=== PATIENT | male | born 1985 | race Caucasian/White ===

== ENCOUNTER 2023-11-03 06:26 | Emergency (ER) | payer OTHER, SELFPAY ==
[2023-11-03 06:30] VITALS: BMI 30.2
[2023-11-03 06:34] VITALS: BP 130/89
--- NOTE | 2023-11-03 06:48 | ED.GENMED ---
History of Present Illness
General
Chief Complaint: Skin Surface Trauma
Source: patient
Exam Limitations: none
Time Seen by Provider: 11/03/23 06:38
Nursing documentation reviewed up to this point in time: agreed with
History of Present Illness
History of Present Illness:
38-year-old male with past medical history of alcohol use presents to the emergency room for evaluation of a foot laceration. Patient reports that he was cleaning his room this morning and broke his fish tank. He says that he stepped on a piece of
glass from the tank and sustained a laceration to the foot. Unsure of his last tetanus. No other injuries.
Past History
Past History
ED Past Medical History: Other (ADHD)
ED Past Surgical History: Orthopedic
Social History
Tobacco: Smoker
Alcohol: Occasional
Personal: Single
Living: with family
Employment: Not employed
Review of Systems
Review of Systems
All Other Systems: ROS reviewed and negative except as documented in HPI and ROS
Skin: Reports other (Lacerations)
Phy Exam
Physical Exam
Physical Exam:
General: Well appearing and non-toxic; mildly intoxicated
HEENT: protecting airway
Neck: appears supple
CV: No evidence of cyanosis
Resp: No accessory muscle use
Abd: Non-distended
Extremities: No deformities
Neuro: Alert
Psych: Normal affect
Skin: Patient has approximately 5 cm linear laceration anterior to the medial malleolus as well as a approximately 2 cm linear laceration on the plantar surface of the foot near the instep; good strong DP pulse noted on the right foot, no pulsatile
bleeding; left foot appears normal with no lacerations or breaks in the skin
Scores
Heart Failure Risk
Heart Failure Risk Score: Not Applicable
Heart Score for Chest Pain Patients
STEMI patient?: Not applicable
Withdrawal Assessment of Alcohol
Withdrawal Assessment Completed?: Not applicable
Course
Orders/Labs/Results
Orders:
Orders
11/03/23 06:46
CR Foot - Right Min 3 Views Urgent
Comment:
Reason For Exam: laceration to foot from glass,eval for signs of FB
11/03/23 06:47
Tetanus/Diphth/Acelpertussis [Adacel] 0.5 ml IM .ONCE ONE
Vital Signs
Initial and Last Documented VS:
Initial Vital Signs
Temp Pulse Resp BP Pulse Ox
36.8 C 99 18 130/89 98
11/03/23 06:34 11/03/23 06:34 11/03/23 06:34 11/03/23 06:34 11/03/23 06:34
Last Documented Vital Signs
Temp Pulse Resp BP Pulse Ox
36.8 C 99 18 130/89 98
11/03/23 06:34 11/03/23 06:34 11/03/23 06:34 11/03/23 06:34 11/03/23 06:34
Procedures
Laceration Closure
Right Ankle:
Status of Wound: clean
Size of Wound in cm: 5
Description of Wound Edges: sharp
Preparation: cleaned with saline and cleaned with Betadine
Anesthesia: 1% Lidocaine with epi
Revision/Debridement: routine- no revision
Wound exploration: explored to base- no FB
Type of Closure: single layer closure
Skin Closure Material: 4-0 vicryl
Number of sutures: 7
Right Foot:
Status of Wound: clean
Size of Wound in cm: 2
Description of Wound Edges: ragged
Preparation: cleaned with saline and cleaned with Betadine
Anesthesia: 1% Lidocaine with epi
Revision/Debridement: minor revision
Wound exploration: explored to base- no FB
Type of Closure: single layer closure
Skin Closure Material: 4-0 vicryl
Number of sutures: 3
MDM/Problems Addressed
Differential Diagnosis Includes:
Lacerations
MDM/Problems Addressed:
38-year-old male presents with lacerations to left foot from glass. He has 2 lacerations on the right foot, no other injuries noted. Unsure of his last tetanus�will update tetanus here. Will start with an x-ray to evaluate for any signs of
foreign body�if nothing noted on x-ray will need to explore wounds during cleaning/repair to rule out any signs of foreign body.
X-ray reviewed�no foreign body noted. Wounds explored in bloodless field using ankle tourniquet�explored to base and no foreign body noted. Lacerations repaired as documented in procedure note. He is mildly intoxicated�mother to come pick him up.
Discharge.
*Radiology
Radiology exam reviewed: preliminary read by ED provider and radiology read reviewed
*Pulse Oximetry
Patient hypoxic: no
*Critical Care Note
Total Time (30-74mins, 75-104mins- exclusive of procedures): Not Applicable
Data Reviewed
Source: patient
ED Attending Note
-
Portions of this chart may have been created with voice recognition software.� Occasional wrong word or��sound alike� substitutions may have occurred due to the inherent limitations of voice recognition software.
Discharge Plan
Departure
Patient with high blood pressure during this ER visit?: No
Discharge Problem:
Foot laceration
Instructions: Laceration Repair With Stitches (DC)
Prescriptions:
No Action
Adderall
1 tab PO DAILY
Activity Restrictions/Additional Instructions:
You should monitor the area of your lacerations for any signs of infection. If you notice redness, swelling, increasing pain, drainage, fever or any other concerning symptoms please return immediately to have the area reassessed. Your stitches are
absorbable�they do not need to be removed.
Thank you for visiting the Emergency Department at [facility].
1. Please schedule a follow up appointment as directed. Call first thing tomorrow morning to make an appointment.
2. If indicated, please take your medications as instructed and indicated on discharge paperwork.
3. If any of your symptoms do not improve, or persist, or become more severe within 6-12 hours, please return to the emergency department for further care.
4. Please return to the emergency department if you develop a headache, neck pain/stiffness, fever greater than 100.4F, chest pain, shortness of breath, persistent nausea, vomiting, slurred speech, difficulty walking, numbness/tingling, weakness,
signs of infection or any other symptoms that are worrisome to you.
Please call [phone] if you have any questions.
Interventions
Interventions:
*Risk Screen - Suicide Last Done: 11/03/23 06:30
*General Assessment Last Done: 11/03/23 06:30
*Neglect/Abuse Screening Last Done: 11/03/23 06:30
ED- Fall Risk Assessment Last Done: 11/03/23 06:36
*ED COVID-19 Vaccine History Last Done: 11/03/23 06:30
ED-Skin Assessment Last Done: 11/03/23 06:36
Discharge Date and Time
Print Language: VIETNAMESE
[2023-11-03 08:37] VITALS: BP 123/86
--- NOTE | 2023-11-03 08:38 | EDRN ---
the pt is going to be discharged, per Dr. Muller the pt is not to drive home due to being 'intoxicated' per the provider, the provider called the pts mom and the pts mom is going to pick the pt up and take him home, this RN and Dr. Muller provided the
pt with discharge instructions and the pt verbally stated that he understood, the pt is resting in stretcher in the lowest position, side rails up x2, call farooq within reach, HOB elevated, no s/s of distress, will continue to monitor the pt closely
--- NOTE | 2023-11-03 09:00 | EDRN ---
the pts mother Letha arrived and entered the pts room and about 10 minutes later approached this RN at the nurses station and stated, 'I mentioned to him that he shouldn't be drinking and how it isn't right and he just started cursing and getting
angry and he just walked out, i am not sure which way he went but that was a few minutes ago', this RN notified Dr. Muller, the charge nurse, and security, this RN and Renata RN looked throughout the entire department with no sign of the pt, this RN
asked the pts mother what kind of car the patient drove and she stated that he drove a silver honda, this RN looked in the parking lot with security and Renata RN with no sign of the pt, this RN notified Dr. Muller and per the provider [place]
police were called and notified, the pts mother stated that she would start her ride home to see if she sees the pt on her way and to see if the pt made it home okay, this RN handed the pts mother the pts discharge instructions, the pts mother
stated before leaving, 'I didn't know that he was going to get this upset, i know that he was diagnosed with schitzophrenia but he doesn't want me to know anything else, i know that he got drunk last night and started cursing and throwing things and
that's how he broke his fish tank and hurt his foot, he left and i didn't know where he went', dispatch notified
--- NOTE | 2023-11-03 09:00 | EDRN ---
the pts mother Letha arrived and entered the pts room and about 10 minutes later approached this RN at the nurses station and stated, 'I mentioned to him that he shouldn't be drinking and how it isn't right and he just started cursing and getting
angry and he just walked out, i am not sure which way he went but that was a few minutes ago', this RN notified Dr. Muller due to the provider stating that the pt was intoxicated, the charge nurse was notified, and security was notified, this RN and
Renata RN looked throughout the entire emergency department with no sign of the pt, torres outside of the emergency department leading to the rest of the hospital were checked as well as the waiting room and the ambulance bay, this RN asked entered
the pts room and asked the pts mother what kind of car the patient drove so that staff would look to see if the car was still possibly at [facility], and she stated that he drove a silver honda, this RN looked in the parking lot with security and Renata
RN with no sign of the pt, this RN notified Dr. Muller and per the provider [place] police were to be called and notified, the pts mother stated that she would start her ride home to see if she sees the pt on her way and to see if the pt made it
home okay, this RN handed the pts mother the pts discharge instructions, the pts mother stated before leaving, 'I didn't know that he was going to get this upset and walk out on me before i could safely take him home, i know that he was diagnosed
with schizophrenia but he doesn't want me to know anything else he is very secretive, i know that he got drunk last night and started cursing and throwing things and that's how he broke his fish tank and hurt his foot, he left and i didn't know
where he went', dispatch notified about the pts condition and what happened in [place] emergency department, this RN also tried to call the pts cell phone multiple times with no answer
--- NOTE | 2023-11-03 09:00 | EDRN ---
the pts mother arrived and the pts mother walked into the pts room, the pts mother approached the nurses station and stated that her son (the pt) was not in the room, carmen RN and Rneata ASENCIO looking for the pt
--- NOTE | 2023-11-03 09:35 | EDRN ---
the pts mother Letha called this RN and stated that she just got to her home and is watching the pt pull into the driveway, the pts mother stated that there doesn't appear to be any damage to the car signifying an accident, this RN notified Dr. Muller
== END 2023-11-03 09:22 | disposition home or self-care (01) ==
LOC: EMR 06:26
PROVIDERS: EMERGENCY PHYSICIAN Emergency Medicine
DX: S91.311A Laceration without foreign body, right foot, initial encounter (principal); S91.011A Laceration without foreign body, right ankle, initial encounter; W25.XXXA Contact with sharp glass, initial encounter; F17.200 Nicotine dependence, unspecified, uncomplicated; Z23 Encounter for immunization
CPT/HCPCS: 99283; 12002; 73630

== ENCOUNTER 2025-02-04 11:03 | Emergency (ER) | payer OTHER, SELFPAY ==
[2025-02-04 11:08] VITALS: BP 191/111
[2025-02-04 11:16] LABS: Glucose - Point of Care 135 mg/dl (70-99)
[2025-02-04 11:30] VITALS: BP 160/105
[2025-02-04 12:00] VITALS: BP 148/95
[2025-02-04 12:53] LABS: Hematocrit 36.9 % (39.0-52.0); Hemoglobin 12.7 g/dL (13.0-18.0); Mean Corp Hgb Conc. 34.4 g/dL (33.0-37.0); Mean Corpuscular Volume 99.5 fL (80.0-94.0); Nucleated Red Blood Cells % 0 % (-); Red Cell Dist. Width 14.2 % (11.5-14.5)
[2025-02-04 13:00] VITALS: BP 133/106
[2025-02-04 13:02] LABS: ALT (SGPT) 103 U/L (0-50); AST (SGOT) 377 U/L (17-59); Albumin 4.8 g/dl (3.5-5.0); Alkaline Phosphatase 221 U/L (38-126); Blood Urea Nitrogen 10 mg/dl (9-20); Calcium 9.7 mg/dl (8.4-10.2); Carbon Dioxide 24 mmol/L (22-30); Chloride 100 mmol/L (98-107); Glucose 129 mg/dl (70-99); Potassium 4.3 mmol/L (3.5-5.1); Sodium 137 mmol/L (135-145); Total Protein 8.9 g/dl (6.3-8.2); eGFR > 60.00
[2025-02-04 13:19] LABS: Platelet Count 65 10^3/uL (130-400)
--- NOTE | 2025-02-04 13:23 | ED.GENMED ---
History of Present Illness
General
Chief Complaint: Nose Bleed
Source: patient and family
Exam Limitations: none
Time Seen by Provider: 02/04/25 11:24
Nursing documentation reviewed up to this point in time: agreed with
History of Present Illness
History of Present Illness:
39-year-old male presents emergency room complaining of nosebleed and vomiting blood. Ongoing for the past 2 days. He drinks alcohol frequently. He did not drink today.
Past History
Past History
ED Past Medical History: Other (ADHD)
ED Past Surgical History: Orthopedic
Social History
Tobacco: Smoker
Alcohol: Occasional
Personal: Single
Living: with family
Employment: Not employed
Review of Systems
Review of Systems
Allergies reviewed?: Yes
All Other Systems: Not applicable
Constitutional: Reports no symptoms
EENT: Reports other (Nosebleed)
Respiratory: Reports no symptoms
Cardiac: Reports no symptoms
ABD/GI: Reports no symptoms
: Reports no symptoms
Musculoskeletal: Reports no symptoms
Skin: Reports no symptoms
Neurological: Reports no symptoms
Endocrine: Reports no symptoms
Hematologic/Lymphatic: Reports no symptoms
Psychiatric: Reports no symptoms
Phy Exam
Physical Exam
Physical Exam:
Physical Exam
General: Appears uncomfortable
Neck: supple. no meningeal signs. normal posterior pharynx
Heart: s1/s2 regular rate and rhythm, no murmur. equal radial
pulses. Tachycardia
HEENT: Pupils equal round reactive to light, EOMI, anterior hemorrhage right nostril
Lungs: no acute respiratory distress. clear bilaterally
Abdomen: normal bowel sounds. not tender. no CVAT
Neuro: alert and oriented. no focal neurological deficits cranial nerves II through XII intact
Skin: no rash
Psychiatric: well kept. interactive and cooperative
Extremities: no edema. no calf tenderness. negative homans. good distal pulses
Course
Orders/Labs/Results
Orders:
Orders
02/04/25 12:35
Complete Blood Count/With Diff Urgent
Comprehensive Metabolic Panel Urgent
Abnormal Lab Results
02/04/25 02/04/25
11:14 12:35
RBC 3.71 L 10^6/uL
(4.70-6.10)
Hgb 12.7 L g/dL
(13.0-18.0)
Hct 36.9 L %
(39.0-52.0)
MCV 99.5 H fL
(80.0-94.0)
MCH 34.2 H pg
(27.0-31.0)
Plt Count 65 L 10^3/uL
(130-400)
Absolute Neuts (auto) 7.1 H 10^3/uL
(1.4-6.5)
Absolute Lymphs (auto) 0.7 L 10^3/uL
(1.2-3.4)
Absolute Monos (auto) 0.7 H 10^3/uL
(0.1-0.6)
Neutrophils % 82.1 H %
(42.2-75.2)
Lymphocytes % 8.6 L %
(20.5-51.1)
Creatinine 0.5 L mg/dL
(0.7-1.3)
Glucose 129 H mg/dl
(70-99)
Total Bilirubin 1.8 H mg/dl
(0.2-1.3)
AST 377 H U/L
(17-59)
ALT 103 H U/L
(0-50)
Alkaline Phosphatase 221 H U/L
(38-126)
Total Protein 8.9 H g/dl
(6.3-8.2)
POC Glucose 135 H mg/dl
(70-99)
02/04/25 12:35
02/04/25 12:35
Vital Signs
Initial and Last Documented VS:
Initial Vital Signs
Pulse Resp BP Pulse Ox
136 19 191/111 97
02/04/25 11:08 02/04/25 11:08 02/04/25 11:08 02/04/25 11:08
Last Documented Vital Signs
Pulse Resp BP Pulse Ox
121 17 148/95 97
02/04/25 12:00 02/04/25 12:00 02/04/25 12:00 02/04/25 13:24
Procedures
Nosebleed
Drug treatment: Lidocaine and Epinephrine
Treatment: other (anterior balloon)
Post treatment bleeding: none- good control
MDM/Problems Addressed
Differential Diagnosis Includes:
Epistaxis, posterior epistaxis
MDM/Problems Addressed:
39-year-old male with anterior epistaxis controlled with anterior balloon. Azithromycin given as prophylaxis follow-up with ENT.
*Pulse Oximetry
SaO2: 97
Oxygen Mode of Delivery: Room air
Patient hypoxic: no
*Critical Care Note
Total Time (30-74mins, 75-104mins- exclusive of procedures): Not Applicable
Patient Management
Social determinants of health affecting care: Living situation and Substance abuse (Alcohol)
Escalation/DeEscalation of care consider admission/obs:
Admission not indicated
ED Attending Note
-
Portions of this chart may have been created with voice recognition software.� Occasional wrong word or��sound alike� substitutions may have occurred due to the inherent limitations of voice recognition software.
Discharge Plan
Departure
Patient Disposition: Home (Routine Discharge)
Date of Disposition: 02/04/25
Time of Disposition: 13:23
Patient with high blood pressure during this ER visit?: Yes
Condition: Good
Discharge Problem:
Acute anterior epistaxis
Instructions: Nosebleeds (DC), BLOOD PRESSURE
Prescriptions:
New
azithromycin [Zithromax] 250 mg tablet
250 mg PO DAILY Qty: 6 0RF
Rx Instructions:
2 tabs day 1, then 1 tab daily for 4 days
No Action
Adderall
1 tab PO DAILY
Referrals:
Nile Celis MD [Family Provider, Family Practice]
Skyler Albarran MD [Active, Otology] - Call in 1-3 days for appt
Interventions
Interventions:
*General Assessment Last Done: 02/04/25 11:10
*Neglect/Abuse Screening Last Done: 02/04/25 11:10
*ED COVID-19 Vaccine History Last Done: 02/04/25 11:10
*ED Influenza Vaccine History Last Done: 02/04/25 11:10
*Risk Screen - Suicide (C-SSRS) Last Done: 02/04/25 11:10
ED-EENT Assessment Last Done: 02/04/25 11:32
Discharge Date and Time
Print Language: ICELANDIC
== END 2025-02-04 14:04 | disposition home or self-care (01) ==
LOC: EMR 11:03
PROVIDERS: EMERGENCY PHYSICIAN Emergency Medicine; FAMILY PHYSICIAN Family Medicine
DX: R04.0 Epistaxis (principal); K92.0 Hematemesis; F90.9 Attention-deficit hyperactivity disorder, unspecified type; F10.10 Alcohol abuse, uncomplicated; F19.10 Other psychoactive substance abuse, uncomplicated; F17.200 Nicotine dependence, unspecified, uncomplicated
CPT/HCPCS: 99283; 30901; 80053; 82962; 85025